=== PATIENT | female | born 1945 | race Asian ===

== ENCOUNTER 2017-05-20 07:05 | Inpatient (IN) | payer OTHER ==
[~2017-05-20] VITALS: Ht 152.4 cm; Wt 59.4 kg
[2017-05-20] MEDS: IV NORMAL SALINE 1000ML BAG 1,000 ML IV SCH ×2 (03:00→12:07)
[2017-05-20] MEDS ORDERED: ACETAMINOPHEN 500 MG TABLET PO ONE (07:30)
[2017-05-20] MEDS ORDERED: IPRATRPIUM/ALBUTEROL 0.5/2.5MG 3 ML NEBU. NEB ONE (07:30)
[2017-05-20] MEDS ORDERED: IV NORMAL SALINE 1000ML BAG 1,000 ML IV ONE (07:30)
--- NOTE | 2017-05-20 07:31 | EKG ---
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
--- NOTE | 2017-05-20 07:31 | PHYS DOC ---
Past Medical History Past Medical History: Diabetes-Type II, Hypertension Adult General Chief Complaint Chief Complaint: cough, fever HPI HPI Patient is a 71 year old female who presents with cough, sob, chest pain, fevers. Pt reports 2-3 days of symptoms, denies headache, dysuria, abdominal pain, no nausea or vomiting. Pt has not taken her temperature at home. She did receive a flu shot this year. PCP is Dr. Marks. Review of Systems Review of Systems Constitutional: Denies fever or chills [] Eyes: Denies change in visual acuity, redness, or eye pain [] HENT: Denies nasal congestion or sore throat [] Respiratory: Denies cough or shortness of breath [] Cardiovascular: No additional information not addressed in HPI [] GI: Denies abdominal pain, nausea, vomiting, bloody stools or diarrhea [] : Denies dysuria or hematuria [] Musculoskeletal: Denies back pain or joint pain [] Integument: Denies rash or skin lesions [] Neurologic: Denies headache, focal weakness or sensory changes [] Endocrine: Denies polyuria or polydipsia [] All other systems were reviewed and found to be within normal limits, except as documented in this note. Current Medications Current Medications Current Medications Medications (Trade) Dose Ordered Sig/Eliseo Start Time Stop Time Status Last Admin Dose Admin Acetaminophen (Tylenol) 1,000 mg 1X ONCE 05/20/17 07:30 05/20/17 07:33 DC 05/20/17 07:56 1,000 MG Albuterol/ Ipratropium (Duoneb) 3 ml 1X ONCE 05/20/17 07:30 05/20/17 07:33 DC 05/20/17 07:42 3 ML Ondansetron HCl (Zofran) 4 mg PRN Q8HRS PRN 05/20/17 08:45 05/21/17 08:44 Piperacillin Sod/ Tazobactam Sod (Zosyn Per Pharmacy) 1 each PRN DAILY PRN 05/20/17 08:30 Piperacillin Sod/ Tazobactam Sod (Zosyn) 3.375 gm 1X ONCE 05/20/17 08:45 05/20/17 08:46 DC 05/20/17 09:03 3.375 GM Sodium Chloride 1,000 ml @ 1,000 mls/hr 1X ONCE 05/20/17 07:30 05/20/17 08:30 DC 05/20/17 07:57 1,000 MLS/HR Vancomycin HCl (Vanco Per Pharmacy) 1 each PRN DAILY PRN 05/20/17 08:30 05/20/17 09:35 1 EACH Vancomycin HCl 1.5 gm/Dextrose/ Sodium Chloride 500 ml @ 250 mls/hr 1X ONCE 05/20/17 08:45 05/20/17 10:44 05/20/17 09:10 250 MLS/HR Allergies Allergies Allergies Coded Allergies Type Severity Reaction Last Updated Verified No Known Drug Allergies 05/20/17 No Physical Exam Physical Exam Constitutional: Well developed, well nourished, ill appearing, non-toxic appearance. [] HENT: Normocephalic, atraumatic, bilateral external ears normal, oropharynx moist, no oral exudates, nose normal. [] Eyes: PERRLA, EOMI, conjunctiva normal, no discharge. [] Neck: Normal range of motion, no tenderness, supple, no stridor. [] Cardiovascular:Heart rate regular with regular rhythm, no murmur [] Lungs & Thorax: Bilateral breath sounds , coarse, faint exp wheeze Abdomen: Bowel sounds normal, soft, no tenderness, no masses, no pulsatile masses. [] Skin: hot, dry, no erythema, no rash. [] Back: No tenderness, no CVA tenderness. [] Extremities: No tenderness, no cyanosis, no clubbing, ROM intact, no edema. [] Neurologic: Alert and oriented X 3, normal motor function, normal sensory function, no focal deficits noted. [] Current Patient Data Vital Signs Vital Signs Date Time Temp Pulse Resp B/P (MAP) Pulse Ox O2 Delivery O2 Flow Rate FiO2 05/20/17 07:45 95 Nasal Cannula 2.0 05/20/17 07:20 100.1 105 27 161/73 (102) 100.1 Lab Values Laboratory Tests Test 05/20/17 07:25 05/20/17 07:45 O2 Saturation 95 % (92-99) Arterial Blood pH 7.32 (7.35-7.45) L Arterial Blood pCO2 at Patient Temp 52 mmHg (35-46) H Arterial Blood pO2 at Patient Temp 77 mmHg (65-108) Arterial Blood HCO3 26 mmol/L (21-28) Arterial Blood Base Excess -1 mmol/L (-3-3) FiO2 28 Lactic Acid Level 0.7 mmol/L (0.4-2.0) White Blood Count 13.5 x10^3/uL (4.0-11.0) H Red Blood Count 4.73 x10^6/uL (3.50-5.40) Hemoglobin 13.4 g/dL (12.0-15.5) Hematocrit 42.9 % (36.0-47.0) Mean Corpuscular Volume 91 fL (79-100) Mean Corpuscular Hemoglobin 28 pg (25-35) Mean Corpuscular Hemoglobin Concent 31 g/dL (31-37) Red Cell Distribution Width 13.2 % (11.5-14.5) Platelet Count 169 x10^3/uL (140-400) Neutrophils (%) (Auto) 82 % (31-73) H Lymphocytes (%) (Auto) 8 % (24-48) L Monocytes (%) (Auto) 9 % (0-9) Eosinophils (%) (Auto) 0 % (0-3) Basophils (%) (Auto) 1 % (0-3) Neutrophils # (Auto) 11.1 x10^3uL (1.8-7.7) H Lymphocytes # (Auto) 1.0 x10^3/uL (1.0-4.8) Monocytes # (Auto) 1.3 x10^3/uL (0.0-1.1) H Eosinophils # (Auto) 0.0 x10^3/uL (0.0-0.7) Basophils # (Auto) 0.1 x10^3/uL (0.0-0.2) Prothrombin Time 13.3 SEC (11.7-14.0) Prothrombin Time INR 1.1 (0.8-1.1) Sodium Level 140 mmol/L (136-145) Potassium Level 4.1 mmol/L (3.5-5.1) Chloride Level 103 mmol/L (98-107) Carbon Dioxide Level 27 mmol/L (21-32) Anion Gap 10 (6-14) Blood Urea Nitrogen 39 mg/dL (7-20) H Creatinine 1.9 mg/dL (0.6-1.0) H Estimated GFR (Cockcroft-Gault) 25.9 BUN/Creatinine Ratio 21 (6-20) H Glucose Level 158 mg/dL (70-99) H Calcium Level 9.0 mg/dL (8.5-10.1) Magnesium Level 1.8 mg/dL (1.8-2.4) Total Bilirubin 0.5 mg/dL (0.2-1.0) Aspartate Amino Transferase (AST) 24 U/L (15-37) Alanine Aminotransferase (ALT) 23 U/L (14-59) Alkaline Phosphatase 73 U/L (46-116) Total Protein 7.2 g/dL (6.4-8.2) Albumin 3.1 g/dL (3.4-5.0) L Albumin/Globulin Ratio 0.8 (1.0-1.7) L Influenza Type A Antigen Negative (NEGATIVE) Influenza Type B Antigen Negative (NEGATIVE) Laboratory Tests 05/20/17 07:45 Laboratory Tests 05/20/17 07:45 EKG EKG 0726: 94 bpm, sinus, normal axis, normal intervals, no ST elevation or depression, nonischemic T waves, interpreted by me[] Radiology/Procedures Radiology/Procedures CXR Portable chest, 05/20/2017: History: Cough, chest pain The heart is mildly enlarged. There is calcific plaquing of the aorta. The pulmonary vascularity is normal. No pulmonary infiltrates are seen. There is no evidence of pleural fluid. Moderate spurring is present in the spine. IMPRESSION: 1. Mild cardiomegaly and aortic atherosclerosis. 2. No acute abnormality is detected. [] Course & Med Decision Making Course & Med Decision Making Pertinent Labs and Imaging studies reviewed. (See chart for details) 1 L NS bolus, po tylenol initiated, septic workup initiated, blood cultures/UA ordered, duoneb. NC O2 initiated due to hypoxia. Pt's sats improved to 98% CXR negative for pneumonia, however clinically she appears to have pneumonia due to resp failure, fever, cough. Pt given IV vanc, zosyn, discussed with Dr. Flores, he accepted, consults placed for pulmonary and ID. Dragon Disclaimer Dragon Disclaimer This electronic medical record was generated, in whole or in part, using a voice recognition dictation system. Departure Departure Impression: Primary Impression: Acute respiratory failure Additional Impression: Sepsis Disposition: 09 ADMITTED INPATIENT Admitting Physician: Bhavana Flores Condition: GUARDED Referrals: PAVITHRA MARKS (PCP) Problem Qualifiers MIKE PARTIDA MD May 20, 2017 07:31
--- NOTE | 2017-05-20 07:46 | RAD ---
Portable chest, 05/20/2017: History: Cough, chest pain The heart is mildly enlarged. There is calcific plaquing of the aorta. The pulmonary vascularity is normal. No pulmonary infiltrates are seen. There is no evidence of pleural fluid. Moderate spurring is present in the spine. IMPRESSION: 1. Mild cardiomegaly and aortic atherosclerosis. 2. No acute abnormality is detected.
[2017-05-20 08:09] LABS: INR 1.1 (0.8-1.1); PROTHROMBIN TIME PATIENT 13.3 SEC (11.7-14.0)
[2017-05-20 08:13] LABS: CREATININE 1.9 mg/dL (0.6-1.0); GFR 25.9; POTASSIUM 4.1 mmol/L (3.5-5.1)
[2017-05-20 08:17] LABS: ALBUMIN 3.1 g/dL (3.4-5.0); ALBUMIN/GLOBULIN RATIO 0.8 (1.0-1.7); MAGNESIUM 1.8 mg/dL (1.8-2.4); TOTAL BILIRUBIN 0.5 mg/dL (0.2-1.0); TOTAL PROTEIN 7.2 g/dL (6.4-8.2)
[2017-05-20 08:21] LABS: BASO # 0.1 x10^3/uL (0.0-0.2); BASO % 1 % (0-3); EOS % 0 % (0-3); HEMATOCRIT 42.9 % (36.0-47.0); HEMOGLOBIN 13.4 g/dL (12.0-15.5); LYMPH % 8 % (24-48); MEAN CORPUSCULAR HEMOGLOBIN 28 pg (25-35); MEAN CORPUSCULAR HGB CONC 31 g/dL (31-37); MEAN CORPUSCULAR VOLUME 91 fL (79-100); MONO % 9 % (0-9); NEUT % 82 % (31-73); PLATELET COUNT 169 x10^3/uL (140-400); RED BLOOD COUNT 4.73 x10^6/uL (3.50-5.40); RED CELL DISTRIBUTION WIDTH 13.2 % (11.5-14.5); WHITE BLOOD COUNT 13.5 x10^3/uL (4.0-11.0)
[2017-05-20] MEDS ORDERED: PIP/TAZO PER PHARMACY MC PRN (08:30)
[2017-05-20] MEDS ORDERED: VANCOMYCIN PER PHARMACY MC PRN (08:30)
[2017-05-20] MEDS ORDERED: ONDANSETRON PF 4 MG/2 ML VIAL. IV PRN (08:45)
[2017-05-20] MEDS ORDERED: VANCOMYCIN 1.5 GM in IV DEXTROSE 5 %-0.45 % NACL 500 ML IV ONE (08:45)
[2017-05-20] MEDS ORDERED: PIPERACILLIN/TAZO IV Push 3.375 GM VIAL. IVP ONE (08:45)
[2017-05-20 08:52] LABS: HCO3 ABG 26 mmol/L (21-28); PCO2 ABG 52 mmHg (35-46); PH ABG 7.32 (7.35-7.45); PO2 ABG 77 mmHg (65-108); SAT O2 ABG 95 % (92-99)
[2017-05-20 08:53] LABS: FIO2 ABG 28
[2017-05-20 08:54] LABS: OBC FLU VALID
--- NOTE | 2017-05-20 10:26 | PDOC ---
Provider Note Provider Note Pt seen.H&P to be dictated. SUKUMAR RICO MD May 20, 2017 10:26
[2017-05-20] MEDS ORDERED: AZITHRMYCN 500MG IVPB FOR OMNI 250 ML IV ONE (10:30)
--- NOTE | 2017-05-20 10:33 | PDOC ---
Infectious Disease Note ROS ROS Vital Sign Vital Signs Vital Signs Date Time Temp Pulse Resp B/P (MAP) Pulse Ox O2 Delivery O2 Flow Rate FiO2 05/20/17 09:45 88 19 108/54 (72) 98 Nasal Cannula 2.0 05/20/17 07:20 100.1 100.1 Labs Lab Laboratory Tests Test 05/20/17 07:25 05/20/17 07:45 05/20/17 10:18 O2 Saturation 95 % (92-99) Arterial Blood pH 7.32 (7.35-7.45) Arterial Blood pCO2 at Patient Temp 52 mmHg (35-46) Arterial Blood pO2 at Patient Temp 77 mmHg (65-108) Arterial Blood HCO3 26 mmol/L (21-28) Arterial Blood Base Excess -1 mmol/L (-3-3) FiO2 28 Lactic Acid Level 0.7 mmol/L (0.4-2.0) White Blood Count 13.5 x10^3/uL (4.0-11.0) Red Blood Count 4.73 x10^6/uL (3.50-5.40) Hemoglobin 13.4 g/dL (12.0-15.5) Hematocrit 42.9 % (36.0-47.0) Mean Corpuscular Volume 91 fL (79-100) Mean Corpuscular Hemoglobin 28 pg (25-35) Mean Corpuscular Hemoglobin Concent 31 g/dL (31-37) Red Cell Distribution Width 13.2 % (11.5-14.5) Platelet Count 169 x10^3/uL (140-400) Neutrophils (%) (Auto) 82 % (31-73) Lymphocytes (%) (Auto) 8 % (24-48) Monocytes (%) (Auto) 9 % (0-9) Eosinophils (%) (Auto) 0 % (0-3) Basophils (%) (Auto) 1 % (0-3) Neutrophils # (Auto) 11.1 x10^3uL (1.8-7.7) Lymphocytes # (Auto) 1.0 x10^3/uL (1.0-4.8) Monocytes # (Auto) 1.3 x10^3/uL (0.0-1.1) Eosinophils # (Auto) 0.0 x10^3/uL (0.0-0.7) Basophils # (Auto) 0.1 x10^3/uL (0.0-0.2) Prothrombin Time 13.3 SEC (11.7-14.0) Prothromb Time International Ratio 1.1 (0.8-1.1) Sodium Level 140 mmol/L (136-145) Potassium Level 4.1 mmol/L (3.5-5.1) Chloride Level 103 mmol/L (98-107) Carbon Dioxide Level 27 mmol/L (21-32) Anion Gap 10 (6-14) Blood Urea Nitrogen 39 mg/dL (7-20) Creatinine 1.9 mg/dL (0.6-1.0) Estimated GFR (Cockcroft-Gault) 25.9 BUN/Creatinine Ratio 21 (6-20) Glucose Level 158 mg/dL (70-99) Calcium Level 9.0 mg/dL (8.5-10.1) Magnesium Level 1.8 mg/dL (1.8-2.4) Total Bilirubin 0.5 mg/dL (0.2-1.0) Aspartate Amino Transf (AST/SGOT) 24 U/L (15-37) Alanine Aminotransferase (ALT/SGPT) 23 U/L (14-59) Alkaline Phosphatase 73 U/L (46-116) Total Protein 7.2 g/dL (6.4-8.2) Albumin 3.1 g/dL (3.4-5.0) Albumin/Globulin Ratio 0.8 (1.0-1.7) Influenza Type A Antigen Negative (NEGATIVE) Influenza Type B Antigen Negative (NEGATIVE) Glucose (Fingerstick) 185 mg/dL (70-99) Objective Assessment Fever Leukocytosis ? Developing CAP vs bronchitis KALIN DM Plan Plan of Care Agree with Vanc/Zosyn Add Azithromycin Given resp status check Mycoplasma/Strep pneuomo/Legionella/Sputum F/u Labs/cults Thank you D/w family # [id number] ZAID DANIELLE MD May 20, 2017 10:33
[2017-05-20 11:00] VITALS: BP 105/41
[2017-05-20] MEDS ORDERED: AZITHROMYCIN 500 MG in IV NORMAL SALINE 250ML 250 ML IV ONE (11:00)
[2017-05-20] MEDS ORDERED: DEXTROSE 50% 25 GM / 50ML DISP.SYRIN. IV PRN (11:00)
[2017-05-20] MEDS ORDERED: ASPI-482 PO (11:05)
[2017-05-20] MEDS ORDERED: METO-239 PO (11:06)
[2017-05-20] MEDS ORDERED: CRESTOR5 MG PO (11:07)
[2017-05-20] MEDS ORDERED: LOSA50TA6 PO (11:07)
[2017-05-20] MEDS ORDERED: CALC1TAB67 PO (11:08)
[2017-05-20] MEDS ORDERED: INSU100I27 SQ (11:11)
[2017-05-20] MEDS: IPRATRPIUM/ALBUTEROL 0.5/2.5MG 3 ML NEBU. NEB SCH ×3 (11:26→20:17)
[2017-05-20 12:13] LABS: NEGATIVE OBC MYCO NEG; POSITIVE OBC MYCO POS
[2017-05-20] MEDS: INSULIN ASPART 300 UNITS/3 ML INSULN.PEN SQ SCH ×2 (12:24→17:00)
[2017-05-20 12:43] LABS: BILIRUBIN,URINE NEGATIVE (NEG); GLUCOSE,URINE NEGATIVE (NEG); NITRITE,URINE NEGATIVE (NEG); PH,URINE 5.5; PROTEIN,URINE 100 mg/dL (NEG-TRACE); UROBILINOGEN,URINE 0.2 mg/dL (0.2 mg/dL)
[2017-05-20 12:52] LABS: BACTERIA,URINE FEW /HPF (0-FEW); SQUAMOUS EPITHELIAL CELL,UR FEW /LPF; WBC,URINE OCC /HPF (0-4)
[2017-05-20] MEDS: METOPROLOL SUCC 24HR ER 25 MG TAB.ER.24H. PO SCH ×2 (13:59→21:38)
[2017-05-20] MEDS: ASPIRIN ENTERIC COATED 81 MG TABLET.DR. PO SCH (13:59)
[2017-05-20 15:00] VITALS: BP 112/46
--- NOTE | 2017-05-20 16:44 | CONS ---
DATE OF CONSULTATION: 05/20/2017 ROOM: 572. REQUESTING PHYSICIAN: Dr. Flores. REASON FOR CONSULTATION: Acute respiratory failure and sepsis. HISTORY OF PRESENT ILLNESS: The patient is a 71-year-old female who has gotten a flu shot this year, but a few days ago began to have congestion with cough. She has had sinus congestion, sore throat. She has had pain in the anterior chest when she coughs with some minimal sputum production. No blood. She has not been on any antimicrobials prior to her admission. She had a subjective fever and presented to [facility] on 05/20. She had a white count of 13.5 with 82% segs. Creatinine was 1.9. Influenza screen was negative. She underwent a chest x-ray that had some mild cardiomegaly, but no acute abnormality. She was subsequently placed on vancomycin as well as Zosyn and admitted to the hospital. Currently, she is lying, she is fairly comfortable. She is on oxygen. She has had no nausea, vomiting or diarrhea. No constipation. No dysuria, frequency or urgency. No falls or trauma and no rashes. PAST MEDICAL HISTORY: Positive for previous urinary tract infections, type 2 diabetes as well as hypertension, has cataracts and she is status post cataract surgery. REVIEW OF SYSTEMS: Negative except for what is mentioned above. ALLERGIES: No known drug allergies. SOCIAL HISTORY: No tobacco or alcohol. Lives with family. No pets. FAMILY HISTORY: No ill contacts. CURRENT MEDICATIONS: Include vancomycin, Zosyn, insulin, lactobacillus. Other meds are available and reviewed in the chart. PHYSICAL EXAMINATION: VITAL SIGNS: Temperature was 100.1, has not been rechecked since it has been taken. Pulse 88, respirations 19, blood pressure 108/54, satting 98% on 2 liters. CONSTITUTIONAL: She is pleasant, cooperative. She looks a little bit tired, but she is in no acute distress. She is on nasal cannula oxygen. HEENT: Pupils are status post cataract surgery. Oral cavity, pharynx is clear. NECK: Supple, no JVD. LUNGS: Had some mild rhonchi, particularly in the right over the left. HEART: S1, S2, with a 1/6 murmur. ABDOMEN: Soft, nontender, nondistended, positive bowel sounds. EXTREMITIES: No clubbing, cyanosis or gross edema. SKIN: Warm to touch without signs of generalized rash. NEUROLOGIC: She is nonfocal, moves all extremities. PSYCHIATRIC: Affect is appropriate. LABORATORY DATA: White count 13.5, hemoglobin 13.4, platelets 169, neutrophils 82, lymphs are 8. Creatinine of 1.9, glucose 158. She had normal liver function study tests. Influenza screen was negative. Radiology reviewed in history of present illness. IMPRESSION: 1. Fever. 2. Leukocytosis. 3. Questionable developing community-acquired pneumonia versus bronchitis. 4. Acute kidney injury. 5. Diabetes. RECOMMENDATIONS: Agree with the vancomycin and Zosyn. We will add azithromycin for atypical coverage. We will check mycoplasma, strep legionella antigens and sputum culture. Follow up on labs and cultures. This was discussed with her family. Thank you for allowing me to see and participate in this patient's care. Should you have any further concerns or questions, please do not hesitate to contact me. ZAID DANIELLE MD DR: JAYY/dwayne JOB#: [id number] / [id number]
[2017-05-20] MEDS: ENOXAPARIN 30 MG/0.3 ML SYRINGE. SQ SCH (17:03)
[2017-05-20] MEDS ORDERED: PNEUMOCOCCAL VAX SCREEN BY RX. MC PRN (17:45)
[2017-05-20] MEDS ORDERED: PNEUMOC CONJ VACC 23-VALENT 0.5 ML VIAL. VAX IM ONE (18:00)
[2017-05-20] MEDS: PIPERACILLIN/TAZO IV Push 2.25 GM VIAL. IVP SCH (18:16)
[2017-05-20 19:00] VITALS: BP 104/57
--- NOTE | 2017-05-20 19:21 | PDOC ---
PULMONARY PROGRESS NOTES Vitals Vital Signs Date Time Temp Pulse Resp B/P (MAP) Pulse Ox O2 Delivery O2 Flow Rate FiO2 05/20/17 15:10 Nasal Cannula 2.0 05/20/17 15:00 98.2 83 18 112/46 (68) 95 98.2 Labs Laboratory Tests Test 05/20/17 07:25 05/20/17 07:45 05/20/17 10:18 05/20/17 12:20 O2 Saturation 95 % (92-99) Arterial Blood pH 7.32 (7.35-7.45) Arterial Blood pCO2 at Patient Temp 52 mmHg (35-46) Arterial Blood pO2 at Patient Temp 77 mmHg (65-108) Arterial Blood HCO3 26 mmol/L (21-28) Arterial Blood Base Excess -1 mmol/L (-3-3) FiO2 28 Lactic Acid Level 0.7 mmol/L (0.4-2.0) White Blood Count 13.5 x10^3/uL (4.0-11.0) Red Blood Count 4.73 x10^6/uL (3.50-5.40) Hemoglobin 13.4 g/dL (12.0-15.5) Hematocrit 42.9 % (36.0-47.0) Mean Corpuscular Volume 91 fL (79-100) Mean Corpuscular Hemoglobin 28 pg (25-35) Mean Corpuscular Hemoglobin Concent 31 g/dL (31-37) Red Cell Distribution Width 13.2 % (11.5-14.5) Platelet Count 169 x10^3/uL (140-400) Neutrophils (%) (Auto) 82 % (31-73) Lymphocytes (%) (Auto) 8 % (24-48) Monocytes (%) (Auto) 9 % (0-9) Eosinophils (%) (Auto) 0 % (0-3) Basophils (%) (Auto) 1 % (0-3) Neutrophils # (Auto) 11.1 x10^3uL (1.8-7.7) Lymphocytes # (Auto) 1.0 x10^3/uL (1.0-4.8) Monocytes # (Auto) 1.3 x10^3/uL (0.0-1.1) Eosinophils # (Auto) 0.0 x10^3/uL (0.0-0.7) Basophils # (Auto) 0.1 x10^3/uL (0.0-0.2) Prothrombin Time 13.3 SEC (11.7-14.0) Prothromb Time International Ratio 1.1 (0.8-1.1) Sodium Level 140 mmol/L (136-145) Potassium Level 4.1 mmol/L (3.5-5.1) Chloride Level 103 mmol/L (98-107) Carbon Dioxide Level 27 mmol/L (21-32) Anion Gap 10 (6-14) Blood Urea Nitrogen 39 mg/dL (7-20) Creatinine 1.9 mg/dL (0.6-1.0) Estimated GFR (Cockcroft-Gault) 25.9 BUN/Creatinine Ratio 21 (6-20) Glucose Level 158 mg/dL (70-99) Calcium Level 9.0 mg/dL (8.5-10.1) Magnesium Level 1.8 mg/dL (1.8-2.4) Total Bilirubin 0.5 mg/dL (0.2-1.0) Aspartate Amino Transf (AST/SGOT) 24 U/L (15-37) Alanine Aminotransferase (ALT/SGPT) 23 U/L (14-59) Alkaline Phosphatase 73 U/L (46-116) Total Protein 7.2 g/dL (6.4-8.2) Albumin 3.1 g/dL (3.4-5.0) Albumin/Globulin Ratio 0.8 (1.0-1.7) Influenza Type A Antigen Negative (NEGATIVE) Influenza Type B Antigen Negative (NEGATIVE) Mycoplasma Serology (LAB) Positive (NEGATIVE) Glucose (Fingerstick) 185 mg/dL (70-99) Urine Collection Type Unknown Urine Color Yellow Urine Clarity Clear Urine pH 5.5 Urine Specific [place] 1.015 Urine Protein 100 mg/dL (NEG-TRACE) Urine Glucose (UA) Negative mg/dL (NEG) Urine Ketones (Stick) Negative mg/dL (NEG) Urine Blood Trace (NEG) Urine Nitrite Negative (NEG) Urine Bilirubin Negative (NEG) Urine Urobilinogen Dipstick 0.2 mg/dL (0.2 mg/dL) Urine Leukocyte Esterase Negative (NEG) Urine RBC 3-5 /HPF (0-2) Urine WBC Occ /HPF (0-4) Urine Squamous Epithelial Cells Few /LPF Urine Bacteria Few /HPF (0-FEW) Test 05/20/17 17:02 Glucose (Fingerstick) 149 mg/dL (70-99) Laboratory Tests Test 05/20/17 07:25 05/20/17 07:45 05/20/17 10:18 05/20/17 12:20 O2 Saturation 95 % (92-99) Arterial Blood pH 7.32 (7.35-7.45) Arterial Blood pCO2 at Patient Temp 52 mmHg (35-46) Arterial Blood pO2 at Patient Temp 77 mmHg (65-108) Arterial Blood HCO3 26 mmol/L (21-28) Arterial Blood Base Excess -1 mmol/L (-3-3) FiO2 28 Lactic Acid Level 0.7 mmol/L (0.4-2.0) White Blood Count 13.5 x10^3/uL (4.0-11.0) Red Blood Count 4.73 x10^6/uL (3.50-5.40) Hemoglobin 13.4 g/dL (12.0-15.5) Hematocrit 42.9 % (36.0-47.0) Mean Corpuscular Volume 91 fL (79-100) Mean Corpuscular Hemoglobin 28 pg (25-35) Mean Corpuscular Hemoglobin Concent 31 g/dL (31-37) Red Cell Distribution Width 13.2 % (11.5-14.5) Platelet Count 169 x10^3/uL (140-400) Neutrophils (%) (Auto) 82 % (31-73) Lymphocytes (%) (Auto) 8 % (24-48) Monocytes (%) (Auto) 9 % (0-9) Eosinophils (%) (Auto) 0 % (0-3) Basophils (%) (Auto) 1 % (0-3) Neutrophils # (Auto) 11.1 x10^3uL (1.8-7.7) Lymphocytes # (Auto) 1.0 x10^3/uL (1.0-4.8) Monocytes # (Auto) 1.3 x10^3/uL (0.0-1.1) Eosinophils # (Auto) 0.0 x10^3/uL (0.0-0.7) Basophils # (Auto) 0.1 x10^3/uL (0.0-0.2) Prothrombin Time 13.3 SEC (11.7-14.0) Prothromb Time International Ratio 1.1 (0.8-1.1) Sodium Level 140 mmol/L (136-145) Potassium Level 4.1 mmol/L (3.5-5.1) Chloride Level 103 mmol/L (98-107) Carbon Dioxide Level 27 mmol/L (21-32) Anion Gap 10 (6-14) Blood Urea Nitrogen 39 mg/dL (7-20) Creatinine 1.9 mg/dL (0.6-1.0) Estimated GFR (Cockcroft-Gault) 25.9 BUN/Creatinine Ratio 21 (6-20) Glucose Level 158 mg/dL (70-99) Calcium Level 9.0 mg/dL (8.5-10.1) Magnesium Level 1.8 mg/dL (1.8-2.4) Total Bilirubin 0.5 mg/dL (0.2-1.0) Aspartate Amino Transf (AST/SGOT) 24 U/L (15-37) Alanine Aminotransferase (ALT/SGPT) 23 U/L (14-59) Alkaline Phosphatase 73 U/L (46-116) Total Protein 7.2 g/dL (6.4-8.2) Albumin 3.1 g/dL (3.4-5.0) Albumin/Globulin Ratio 0.8 (1.0-1.7) Influenza Type A Antigen Negative (NEGATIVE) Influenza Type B Antigen Negative (NEGATIVE) Mycoplasma Serology (LAB) Positive (NEGATIVE) Glucose (Fingerstick) 185 mg/dL (70-99) Urine Collection Type Unknown Urine Color Yellow Urine Clarity Clear Urine pH 5.5 Urine Specific [place] 1.015 Urine Protein 100 mg/dL (NEG-TRACE) Urine Glucose (UA) Negative mg/dL (NEG) Urine Ketones (Stick) Negative mg/dL (NEG) Urine Blood Trace (NEG) Urine Nitrite Negative (NEG) Urine Bilirubin Negative (NEG) Urine Urobilinogen Dipstick 0.2 mg/dL (0.2 mg/dL) Urine Leukocyte Esterase Negative (NEG) Urine RBC 3-5 /HPF (0-2) Urine WBC Occ /HPF (0-4) Urine Squamous Epithelial Cells Few /LPF Urine Bacteria Few /HPF (0-FEW) Test 05/20/17 17:02 Glucose (Fingerstick) 149 mg/dL (70-99) Medications Active Scripts Medications Dose Route/Sig Max Daily Dose Days Date Category Levemir Flextouch (Insulin Detemir) 100 Unit/1 Ml Insuln.pen 28 Unit SQ HS 05/20/17 Reported Calcitrate + Vit D Caplet (Calcium Citrate/Vitamin D3) 1 Each Tablet 1 Each PO 05/20/17 Reported Crestor (Rosuvastatin Calcium) 5 Mg Tablet 1 Tab PO DAILY 05/20/17 Reported Losartan Potassium 50 Mg Tablet 50 Mg PO DAILY 05/20/17 Reported Metoprolol Succinate ( Xl ) (Metoprolol Succinate) 25 Mg Tab.er.24h 1 Tab PO BID 05/20/17 Reported Aspir 81 (Aspirin) 81 Mg Tablet.dr 1 Tab PO DAILY 05/20/17 Reported Impression . NOTE DICTATED PNEUMONIA AGREE WITH CURRENT RX THANKS JUSTICE MALAGON MD May 20, 2017 19:21
[2017-05-20] MEDS: LACTOBACILLUS RHAMNOSUS GG 1 CAPSULE. PO SCH (21:38)
[2017-05-20] MEDS: ATORVASTATIN CALCIUM 20 MG TABLET PO SCH (21:39)
[2017-05-20] MEDS: INSULIN DETEMIR 300 UNITS/3 ML INSULN.PEN. SQ SCH (21:44)
[2017-05-20 23:00] VITALS: BP 114/57
[2017-05-21] MEDS: PIPERACILLIN/TAZO IV Push 2.25 GM VIAL. IVP SCH ×2 (00:30→06:00)
[2017-05-21 01:14] LABS: SPECIMEN SOURCE Urine (.)
--- NOTE | 2017-05-21 02:06 | CONS ---
DATE OF CONSULTATION: 05/20/2017 ATTENDING PHYSICIAN: Bhavana Flores M.D. REASON FOR CONSULTATION: The patient seen in pulmonary consultation at the request of Dr. Flores for pneumonia. HISTORY OF PRESENT ILLNESS: The patient is a 71-year old who has never smoked, presented with increasing shortness of breath, cough productive of discolored sputum, some fevers at home 2-3 day symptoms. Denied headaches, diplopia or blurred vision. She was admitted. I was asked to see her in consultation for possible pneumonia. X-ray at this time does not show any infiltrates. She has been seen by Infectious Disease Service and is currently on vancomycin, Zosyn and Zithromax. The patient feels better. At the time of my evaluation, she was not more short of breath. She normally does not wear oxygen. She has never smoked. She denies hemoptysis. PAST MEDICAL HISTORY: UTI, type 2 diabetes and hypertension. PAST SURGICAL HISTORY: Status post cataract extraction. REVIEW OF SYSTEMS: As indicated above, otherwise, a 10-point system was reviewed and negative. CONSTITUTIONAL: No fevers at home. EYES: No changes in visual acuity. HEENT: No nasal congestion or sore throat. RESPIRATORY: As indicated above. CARDIOVASCULAR: No chest pain. No pressure. GASTROINTESTINAL: No nausea, vomiting or diarrhea. GENITOURINARY: No dysuria or frequency. MUSCULOSKELETAL: No localized muscle aches or joint pain. SKIN: No new skin rashes. NEUROLOGICAL: No headaches, diplopia or blurred vision. SOCIAL HISTORY: She has never smoked. No sick contacts at home. FAMILY HISTORY: Noncontributory. VACCINATION HISTORY: She is up to date on vaccination. PHYSICAL EXAMINATION: GENERAL: The patient was in no respiratory distress. VITAL SIGNS: Stable. O2 saturation greater than 92%. HEENT: Eyes, the sclerae were nonicteric. NECK: Jugular venous distention was not elevated. No lymphadenopathy. CHEST: Full expansion. LUNGS: Adequate airway flow with no wheezes. CARDIOVASCULAR: Regular rate and rhythm with S1 and S2. No S3. ABDOMEN: Soft, nontender and nondistended. EXTREMITIES: No clubbing, cyanosis or edema. NEUROLOGICAL: The patient was awake, alert and following commands. A detailed neuro exam was not performed. LABORATORY DATA: Reviewed. White count was elevated. Hemoglobin and hematocrit were noted. Mycoplasma serology was positive. Electrolytes were noted. BUN was elevated. Creatinine was elevated. Arterial blood gas: pH of 7.32, PaCO2 of 57 and pO2 of 77 on 28% FIO2. IMPRESSION: 1. Acute respiratory failure, present upon admission. 2. Mycoplasma pneumonia. 3. Sepsis. 4. Leukocytosis. 5. Fever. 6. Acute kidney injury. 7. Diabetes. PLAN: 1. We will continue current medical management. If the patient continues to improve, we will deescalate the antibiotics in the a.m. 2. Continue oxygen supplementation. 3. Follow clinical course. 4. DVT and GI prophylaxis. Dr. Flores, I do appreciate the privilege in sharing in the patient's care. JUSTICE MALAGON MD DR: DELVIS/dwayne JOB#: [id number] / [id number]
[2017-05-21 03:00] VITALS: BP 122/62
[2017-05-21 05:20] LABS: BASO % 0 % (0-3); EOS % 1 % (0-3); HEMATOCRIT 39.2 % (36.0-47.0); HEMOGLOBIN 12.1 g/dL (12.0-15.5); LYMPH # 1.5 x10^3/uL (1.0-4.8); LYMPH % 20 % (24-48); MEAN CORPUSCULAR HEMOGLOBIN 29 pg (25-35); MEAN CORPUSCULAR HGB CONC 31 g/dL (31-37); MEAN CORPUSCULAR VOLUME 93 fL (79-100); MONO % 11 % (0-9); NEUT % 68 % (31-73); PLATELET COUNT 148 x10^3/uL (140-400); RED BLOOD COUNT 4.22 x10^6/uL (3.50-5.40); RED CELL DISTRIBUTION WIDTH 13.4 % (11.5-14.5); WHITE BLOOD COUNT 7.2 x10^3/uL (4.0-11.0)
[2017-05-21 05:38] LABS: CALCIUM 8.2 mg/dL (8.5-10.1); CREATININE 2.1 mg/dL (0.6-1.0); GFR 23.1
[2017-05-21 07:00] VITALS: BP 134/83
[2017-05-21] MEDS: IPRATRPIUM/ALBUTEROL 0.5/2.5MG 3 ML NEBU. NEB SCH ×4 (07:18→21:01)
[2017-05-21] MEDS: INSULIN ASPART 300 UNITS/3 ML INSULN.PEN SQ SCH ×3 (08:00→16:56)
[2017-05-21] MEDS: LACTOBACILLUS RHAMNOSUS GG 1 CAPSULE. PO SCH ×2 (08:59→20:41)
[2017-05-21] MEDS: METOPROLOL SUCC 24HR ER 25 MG TAB.ER.24H. PO SCH ×2 (09:00→20:51)
[2017-05-21] MEDS ORDERED: VANCOMYCIN 1 GM in IV NORMAL SALINE 250ML 250 ML IV SCH (09:00)
[2017-05-21] MEDS: ASPIRIN ENTERIC COATED 81 MG TABLET.DR. PO SCH (09:00)
--- NOTE | 2017-05-21 09:18 | RAD ---
Examination: Single frontal view chest. History: History of shortness of breath, pneumonia Comparison: 05/20/2017 Findings: Mild cardiomegaly is again identified. Minimal prominent bilateral interstitial lung markings likely chronic interstitial changes grossly similar to prior exam. Minimal left lung base airspace opacity likely atelectasis or infiltrate. Moderate degenerative changes thoracic spine. Impression: Minimal left lung base airspace opacities likely atelectasis or infiltrates.
--- NOTE | 2017-05-21 10:13 | PDOC ---
PROGRESS NOTES Subjective Subjective pt feels better Objective Objective Vital Signs Date Time Temp Pulse Resp B/P (MAP) Pulse Ox O2 Delivery O2 Flow Rate FiO2 05/21/17 09:00 78 134/83 05/21/17 07:19 98 Nasal Cannula 2.0 05/21/17 07:00 97.9 18 97.9 Intake and Output 05/21/17 07:00 Intake Total 1760 ml Output Total 1000 ml Balance 760 ml Intake Oral 760 ml IV Total 1000 ml Output Urine Total 1000 ml # Voids 1 Physical Exam Abdomen: Normal bowel sounds, Soft Heart: Regular rate, Normal S1, Normal S2 Extremities: No clubbing General: Oriented X3 HEENT: Atraumatic Lungs: Normal air movement MUSCULOSKELETAL: No swelling Neck: Supple Neuro: Normal speech Psych/Mental Status: Mental status NL Skin: No breakdown Diagnosis Problem List Problems Medical Problems: (1) Acute respiratory failure Status: Acute (2) Sepsis Status: Acute Assessment Assessment Problems Medical Problems: (1) Acute respiratory failure Status: Acute (2) Sepsis Status: Acute IMPRESSION: 1. Fever. 2. Leukocytosis. 3. community-acquired pneumonia versus bronchitis. 4. Acute on chronic kidney injury. 5. Diabetes IDDM. RECOMMENDATIONS: wbc down 10 mycoplasma urine positive. cxr improving home in 1-2 days d/c vancomycin and Zosyn. We will add azithromycin for atypical coverage. We will check mycoplasma, strep legionella antigens and sputum culture. Follow up on labs and cultures. This was discussed with her family. Problems: Plan Plan of Care Problems Medical Problems: (1) Acute respiratory failure Status: Acute (2) Sepsis Status: Acute Comment Review of Relevant I have reviewed the following items susannah (where applicable) has been applied. Labs Laboratory Tests Test 05/20/17 10:18 05/20/17 12:20 05/20/17 17:02 05/20/17 21:11 Glucose (Fingerstick) 185 mg/dL (70-99) 149 mg/dL (70-99) 214 mg/dL (70-99) Urine Collection Type Unknown Urine Color Yellow Urine Clarity Clear Urine pH 5.5 Urine Specific [place] 1.015 Urine Protein 100 mg/dL (NEG-TRACE) Urine Glucose (UA) Negative mg/dL (NEG) Urine Ketones (Stick) Negative mg/dL (NEG) Urine Blood Trace (NEG) Urine Nitrite Negative (NEG) Urine Bilirubin Negative (NEG) Urine Urobilinogen Dipstick 0.2 mg/dL (0.2 mg/dL) Urine Leukocyte Esterase Negative (NEG) Urine RBC 3-5 /HPF (0-2) Urine WBC Occ /HPF (0-4) Urine Squamous Epithelial Cells Few /LPF Urine Bacteria Few /HPF (0-FEW) Body Fluid Culture (LAB) (.) Urine Legionella Antigen Negative (Negative) Streptococcus pneumoniae Antigen Negative (Negative) Organism Identification (LAB) (.) LUBA Specimen Source Urine (.) Test 05/21/17 03:55 05/21/17 07:27 05/21/17 07:53 White Blood Count 7.2 x10^3/uL (4.0-11.0) Red Blood Count 4.22 x10^6/uL (3.50-5.40) Hemoglobin 12.1 g/dL (12.0-15.5) Hematocrit 39.2 % (36.0-47.0) Mean Corpuscular Volume 93 fL (79-100) Mean Corpuscular Hemoglobin 29 pg (25-35) Mean Corpuscular Hemoglobin Concent 31 g/dL (31-37) Red Cell Distribution Width 13.4 % (11.5-14.5) Platelet Count 148 x10^3/uL (140-400) Neutrophils (%) (Auto) 68 % (31-73) Lymphocytes (%) (Auto) 20 % (24-48) Monocytes (%) (Auto) 11 % (0-9) Eosinophils (%) (Auto) 1 % (0-3) Basophils (%) (Auto) 0 % (0-3) Neutrophils # (Auto) 4.9 x10^3uL (1.8-7.7) Lymphocytes # (Auto) 1.5 x10^3/uL (1.0-4.8) Monocytes # (Auto) 0.8 x10^3/uL (0.0-1.1) Eosinophils # (Auto) 0.1 x10^3/uL (0.0-0.7) Basophils # (Auto) 0.0 x10^3/uL (0.0-0.2) Sodium Level 147 mmol/L (136-145) Potassium Level 4.0 mmol/L (3.5-5.1) Chloride Level 113 mmol/L (98-107) Carbon Dioxide Level 26 mmol/L (21-32) Anion Gap 8 (6-14) Blood Urea Nitrogen 34 mg/dL (7-20) Creatinine 2.1 mg/dL (0.6-1.0) Estimated GFR (Cockcroft-Gault) 23.1 Glucose Level 87 mg/dL (70-99) Calcium Level 8.2 mg/dL (8.5-10.1) Glucose (Fingerstick) 56 mg/dL (70-99) 99 mg/dL (70-99) Microbiology 05/20/17 Blood Culture - Preliminary, Resulted NO GROWTH AFTER 1 DAY 05/20/17 - Final, Resulted 05/20/17 - Final, Resulted 05/20/17 - Final, Resulted 05/20/17 - Final, Resulted 05/20/17 Gram Stain Evaluation - Final, Resulted 05/20/17 Sputum Culture, Resulted Pending 05/20/17 Sputum Result 1, Resulted Pending Medications Current Medications Albuterol/ Ipratropium (Duoneb) 3 ml RTQID NEB Last administered on 05/21/17 07:18; Start 05/20/17 at 12:00 Aspirin (Ecotrin) 81 mg DAILY08 PO Last administered on 05/21/17 09:00; Start 05/20/17 at 13:00 Atorvastatin Calcium (Lipitor) 20 mg QHS PO Last administered on 05/20/17 21: 39; Start 05/20/17 at 21:00 Azithromycin 250 ml @ 250 mls/hr 1X ONCE IV ; Start 05/20/17 at 10:30; Stop 05/20/17 at 11:29; Status UNV Azithromycin 500 mg/Sodium Chloride 250 ml @ 250 mls/hr ONCE ONCE IV Last administered on 05/20/17 12:07; Start 05/20/17 at 11:00; Stop 05/20/17 at 11:59 ; Status DC Dextrose (Dextrose 50%-Water Syringe) 12.5 gm PRN Q15MIN PRN IV SEE COMMENTS; Start 05/20/17 at 11:00 Enoxaparin Sodium (Lovenox 30mg Syringe) 30 mg DAILY16 SQ Last administered on 05/20/17 17:03; Start 05/20/17 at 16:00 Insulin Aspart (NovoLOG) 0-5 UNITS TIDWMEALS SQ Last administered on 05/20/17 12:24; Start 05/20/17 at 12:00 Insulin Detemir (Levemir) 28 units HS SQ Last administered on 05/20/17 21:44; Start 05/20/17 at 21:00 Lactobacillus Rhamnosus (Culturelle) 1 cap BID PO Last administered on 08:59; Start 05/20/17 at 21:00 Metoprolol Succinate (Toprol Xl) 25 mg BID PO Last administered on 05/21/17 09 :00; Start 05/20/17 at 13:30 Piperacillin Sod/ Tazobactam Sod (Zosyn) 2.25 gm Q6HRS IVP Last administered on 05/21/17 06:00; Start 05/20/17 at 18:00 Pneumococcal Polyvalent Vaccine (Do NOT chart on this placeholder) 1 each PRN 1X PRN MC SEE COMMENTS; Start 05/20/17 at 17:45; Status UNV Pneumococcal Polyvalent Vaccine (Pneumovax 23) 0.5 ml ONCE ONCE VAX IM Last administered on 05/21/17 09:09; Start 05/20/17 at 18:00; Stop 05/20/17 at 18:01 ; Status DC Sodium Chloride 1,000 ml @ 75 mls/hr [id number] IV Last administered on 03:00; Start 05/20/17 at 10:30; Stop 05/21/17 at 09:45; Status DC Vancomycin HCl 1 each 1X ONCE MC ; Start 05/22/17 at 08:30; Stop 05/22/17 at 08 :31 Vancomycin HCl 1 gm/Sodium Chloride 250 ml @ 250 mls/hr Q24H IV Last administered on 05/21/17 09:02; Start 05/21/17 at 09:00 Vitals/I & O Vital Sign - Last 24 Hours 05/20/17 05/20/17 05/20/17 05/20/17 11:00 11:29 13:59 14:32 Temp 98.1 98.1 Pulse 82 82 Resp 18 B/P (MAP) 105/41 (62) 105/41 Pulse Ox 94 98 O2 Delivery Room Air Nasal Cannula Nasal Cannula O2 Flow Rate 2.0 2.0 12/705/20/17 05/20/17 05/20/17 15:00 15:10 19:00 20:00 Temp 98.2 99.1 98.2 99.1 Pulse 83 79 Resp 18 20 B/P (MAP) 112/46 (68) 104/57 (73) Pulse Ox 95 95 O2 Delivery Room Air Nasal Cannula Nasal Cannula O2 Flow Rate 2.0 2.0 05/20/17 05/20/17 05/20/17 05/21/17 20:18 21:38 23:00 03:00 Temp 98.3 98.2 98.3 98.2 Pulse 79 70 70 Resp 18 16 B/P (MAP) 104/57 114/57 (76) 122/62 (82) Pulse Ox 96 94 96 O2 Delivery Nasal Cannula O2 Flow Rate 2.0 05/21/17 05/21/17 05/21/17 07:00 07:19 09:00 Temp 97.9 97.9 Pulse 78 78 Resp 18 B/P (MAP) 134/83 (100) 134/83 Pulse Ox 94 98 O2 Delivery Nasal Cannula Nasal Cannula O2 Flow Rate 2.0 2.0 Intake and Output 05/20/17 05/20/17 05/21/17 15:00 23:00 07:00 Intake Total 1240 ml 520 ml Output Total 1000 ml Balance 1240 ml 520 ml -1000 ml SUKUMAR RICO MD May 21, 2017 10:13
--- NOTE | 2017-05-21 10:53 | PDOC ---
Infectious Disease Note Subjective Subjective Feeling better Less cough but still some discomfort Eating some ROS ROS GEN: Denies fevers, chills, sweats HEENT: Denies blurred vision, sore throat CV: Denies chest pain RESP: Denies shortness of air, cough GI: Denies n/v/d NEURO: Denies confusion, dizziness MSK: Denies weakness, joint pain/swelling Vital Sign Vital Signs Vital Signs Date Time Temp Pulse Resp B/P (MAP) Pulse Ox O2 Delivery O2 Flow Rate FiO2 05/21/17 09:00 78 134/83 05/21/17 07:19 98 Nasal Cannula 2.0 05/21/17 07:00 97.9 18 97.9 Physical Exam PHYSICAL EXAM GENERAL: NAD, Alert. looks comfortable but tired HEENT: PERRL, OC/OP -cry NECK: Supple, no JVD, no LN LUNGS: Clear - on 02 HEART: S1S2, no gallop, no murmur ABD: Soft, NT, no organomegaly, no rebound EXT: No edema, no cyanosis COOK NIGHT: Alert, oriented x 3, no focal neurologic deficit SKIN: No rash IV: ok Labs Lab Laboratory Tests Test 05/20/17 12:20 05/20/17 17:02 05/20/17 21:11 05/21/17 03:55 Urine Collection Type Unknown Urine Color Yellow Urine Clarity Clear Urine pH 5.5 Urine Specific [place] 1.015 Urine Protein 100 mg/dL (NEG-TRACE) Urine Glucose (UA) Negative mg/dL (NEG) Urine Ketones (Stick) Negative mg/dL (NEG) Urine Blood Trace (NEG) Urine Nitrite Negative (NEG) Urine Bilirubin Negative (NEG) Urine Urobilinogen Dipstick 0.2 mg/dL (0.2 mg/dL) Urine Leukocyte Esterase Negative (NEG) Urine RBC 3-5 /HPF (0-2) Urine WBC Occ /HPF (0-4) Urine Squamous Epithelial Cells Few /LPF Urine Bacteria Few /HPF (0-FEW) Body Fluid Culture (LAB) (.) Urine Legionella Antigen Negative (Negative) Streptococcus pneumoniae Antigen Negative (Negative) Organism Identification (LAB) (.) LUBA Specimen Source Urine (.) Glucose (Fingerstick) 149 mg/dL (70-99) 214 mg/dL (70-99) White Blood Count 7.2 x10^3/uL (4.0-11.0) Red Blood Count 4.22 x10^6/uL (3.50-5.40) Hemoglobin 12.1 g/dL (12.0-15.5) Hematocrit 39.2 % (36.0-47.0) Mean Corpuscular Volume 93 fL (79-100) Mean Corpuscular Hemoglobin 29 pg (25-35) Mean Corpuscular Hemoglobin Concent 31 g/dL (31-37) Red Cell Distribution Width 13.4 % (11.5-14.5) Platelet Count 148 x10^3/uL (140-400) Neutrophils (%) (Auto) 68 % (31-73) Lymphocytes (%) (Auto) 20 % (24-48) Monocytes (%) (Auto) 11 % (0-9) Eosinophils (%) (Auto) 1 % (0-3) Basophils (%) (Auto) 0 % (0-3) Neutrophils # (Auto) 4.9 x10^3uL (1.8-7.7) Lymphocytes # (Auto) 1.5 x10^3/uL (1.0-4.8) Monocytes # (Auto) 0.8 x10^3/uL (0.0-1.1) Eosinophils # (Auto) 0.1 x10^3/uL (0.0-0.7) Basophils # (Auto) 0.0 x10^3/uL (0.0-0.2) Sodium Level 147 mmol/L (136-145) Potassium Level 4.0 mmol/L (3.5-5.1) Chloride Level 113 mmol/L (98-107) Carbon Dioxide Level 26 mmol/L (21-32) Anion Gap 8 (6-14) Blood Urea Nitrogen 34 mg/dL (7-20) Creatinine 2.1 mg/dL (0.6-1.0) Estimated GFR (Cockcroft-Gault) 23.1 Glucose Level 87 mg/dL (70-99) Calcium Level 8.2 mg/dL (8.5-10.1) Test 05/21/17 07:27 05/21/17 07:53 Glucose (Fingerstick) 56 mg/dL (70-99) 99 mg/dL (70-99) Objective Assessment Fever - better Leukocytosis - better + Mycoplama ? Developing CAP vs bronchitis KALIN - worse DM Plan Plan of Care D/c Vanc/Zosyn Cont Azithromycin F/u Labs/cults D/w family ZAID DANIELLE MD May 21, 2017 10:53
[2017-05-21 11:07] VITALS: BP 127/65
--- NOTE | 2017-05-21 11:10 | HP ---
ADMIT DATE: 05/20/2017 PATIENT LOCATION: [id number] REASON FOR ADMISSION TO THE HOSPITAL: Fever, pneumonia. HISTORY OF PRESENT ILLNESS: The patient is a 71-year-old female, patient of Dr. Gay. The patient has history of diabetes, hypertension, mild renal insufficiency. She was not feeling well for last 2 days, cough, fever, congestion, short of breath, came to the Emergency Room, she was found to be hypoxic, was given 2 liters and x-ray shows infiltrate in the lung, was admitted with diagnosis of possible pneumonia. PAST MEDICAL HISTORY: As mentioned above, history of hypertension, diabetes and mild renal insufficiency. PAST SURGICAL HISTORY: Denies any major surgeries. ALLERGIES: QUESTIONABLE ALLERGY TO [place]. MEDICATIONS: Aspirin 81 mg daily, insulin 20 units of Levemir 25 units, Coreg 25 mg daily, Crestor 5 mg daily and calcium with vitamin D. PERSONAL HISTORY: Denies smoking, alcohol, drug abuse. SOCIAL HISTORY: Lives at home. The patient is up-to-date on flu and pneumonia shots. REVIEW OF SYSTEMS: CARDIAC: No chest pain, only has some cough, fever, chest congestion and some yellow phlegm. Rest of the 14-system was reviewed and negative. PHYSICAL EXAMINATION: GENERAL: The patient was sick yesterday, much better today. VITAL SIGNS: Temperature 101, pulse 105, respirations 27, blood pressure 160/73, 85% on room air, 95% on 2 liters. HEENT: Head is atraumatic. Pupils are equal. Oral cavity: Congestion, posterior pharynx. NECK: Supple. Thyroid not enlarged. JVD not elevated. CHEST: Symmetrical. CARDIOVASCULAR: S1, S2. LUNGS: Few crackles at the right side of the base. ABDOMEN: Soft, bowel sounds present, no mass palpable. EXTERNAL GENITALIA: No Nixon. RECTAL: Deferred. EXTREMITIES: No calf tenderness. There is no edema. NEUROLOGIC: Cranial nerves intact. Power 5/5 in all extremities. LABORATORY DATA: Shows a white count of 13, hemoglobin 13, platelets 169. White count came down to 7. Electrolytes show sodium 140, potassium 4.1, chloride 103, bicarbonate 27, BUN 39, creatinine 1.9, glucose 158. Lactic acid 0.7. LFTs were normal. INR is 1.1. Urine was negative for infection. Influenza A and B were negative. Mycoplasma serology was positive. Urine legionella antigen was negative, strep pneumonia antigen was negative and chest x-ray shows early infiltrate in the right lung. FINAL IMPRESSION: 1. Fever, possible pneumonia. 2. Looks like mycoplasma pneumonia. 3. Diabetes. 4. Hypertension. 5. Mild renal insufficiency, stage 3. PLAN: At this time, was admitted to the hospital, broad-spectrum antibiotic given, vancomycin and Zosyn. ID was consulted, Pulmonary was consulted, given breathing treatments, IV fluids and see how the patient's condition improves in the next 24-48 hours. SUKUMAR RICO MD DR: RANDY/dwayne JOB#: [id number] / [id number] PAVITHRA Boudreaux
[2017-05-21] MEDS: AZITHROMYCIN 250 MG TABLET. PO SCH (12:12)
--- NOTE | 2017-05-21 13:53 | PDOC ---
PULMONARY PROGRESS NOTES Subjective pt feels better less soa Vitals Vital Signs Date Time Temp Pulse Resp B/P (MAP) Pulse Ox O2 Delivery O2 Flow Rate FiO2 05/21/17 11:25 Nasal Cannula 2.0 05/21/17 11:07 97.9 75 18 127/65 (85) 99 97.9 ROS: No Nausea, No Chest Pain, No Abdominal Pain, No Increase Cough Lungs: Crackles Cardiovascular: S1, S2 Abdomen: Soft, Non-tender Neuro Exam: Alert Extremities: No Edema Skin: Warm Labs Laboratory Tests Test 05/20/17 07:25 05/20/17 07:45 05/20/17 10:18 05/20/17 12:20 O2 Saturation 95 % (92-99) Arterial Blood pH 7.32 (7.35-7.45) Arterial Blood pCO2 at Patient Temp 52 mmHg (35-46) Arterial Blood pO2 at Patient Temp 77 mmHg (65-108) Arterial Blood HCO3 26 mmol/L (21-28) Arterial Blood Base Excess -1 mmol/L (-3-3) FiO2 28 Lactic Acid Level 0.7 mmol/L (0.4-2.0) White Blood Count 13.5 x10^3/uL (4.0-11.0) Red Blood Count 4.73 x10^6/uL (3.50-5.40) Hemoglobin 13.4 g/dL (12.0-15.5) Hematocrit 42.9 % (36.0-47.0) Mean Corpuscular Volume 91 fL (79-100) Mean Corpuscular Hemoglobin 28 pg (25-35) Mean Corpuscular Hemoglobin Concent 31 g/dL (31-37) Red Cell Distribution Width 13.2 % (11.5-14.5) Platelet Count 169 x10^3/uL (140-400) Neutrophils (%) (Auto) 82 % (31-73) Lymphocytes (%) (Auto) 8 % (24-48) Monocytes (%) (Auto) 9 % (0-9) Eosinophils (%) (Auto) 0 % (0-3) Basophils (%) (Auto) 1 % (0-3) Neutrophils # (Auto) 11.1 x10^3uL (1.8-7.7) Lymphocytes # (Auto) 1.0 x10^3/uL (1.0-4.8) Monocytes # (Auto) 1.3 x10^3/uL (0.0-1.1) Eosinophils # (Auto) 0.0 x10^3/uL (0.0-0.7) Basophils # (Auto) 0.1 x10^3/uL (0.0-0.2) Prothrombin Time 13.3 SEC (11.7-14.0) Prothromb Time International Ratio 1.1 (0.8-1.1) Sodium Level 140 mmol/L (136-145) Potassium Level 4.1 mmol/L (3.5-5.1) Chloride Level 103 mmol/L (98-107) Carbon Dioxide Level 27 mmol/L (21-32) Anion Gap 10 (6-14) Blood Urea Nitrogen 39 mg/dL (7-20) Creatinine 1.9 mg/dL (0.6-1.0) Estimated GFR (Cockcroft-Gault) 25.9 BUN/Creatinine Ratio 21 (6-20) Glucose Level 158 mg/dL (70-99) Calcium Level 9.0 mg/dL (8.5-10.1) Magnesium Level 1.8 mg/dL (1.8-2.4) Total Bilirubin 0.5 mg/dL (0.2-1.0) Aspartate Amino Transf (AST/SGOT) 24 U/L (15-37) Alanine Aminotransferase (ALT/SGPT) 23 U/L (14-59) Alkaline Phosphatase 73 U/L (46-116) Total Protein 7.2 g/dL (6.4-8.2) Albumin 3.1 g/dL (3.4-5.0) Albumin/Globulin Ratio 0.8 (1.0-1.7) Influenza Type A Antigen Negative (NEGATIVE) Influenza Type B Antigen Negative (NEGATIVE) Mycoplasma Serology (LAB) Positive (NEGATIVE) Glucose (Fingerstick) 185 mg/dL (70-99) Urine Collection Type Unknown Urine Color Yellow Urine Clarity Clear Urine pH 5.5 Urine Specific [place] 1.015 Urine Protein 100 mg/dL (NEG-TRACE) Urine Glucose (UA) Negative mg/dL (NEG) Urine Ketones (Stick) Negative mg/dL (NEG) Urine Blood Trace (NEG) Urine Nitrite Negative (NEG) Urine Bilirubin Negative (NEG) Urine Urobilinogen Dipstick 0.2 mg/dL (0.2 mg/dL) Urine Leukocyte Esterase Negative (NEG) Urine RBC 3-5 /HPF (0-2) Urine WBC Occ /HPF (0-4) Urine Squamous Epithelial Cells Few /LPF Urine Bacteria Few /HPF (0-FEW) Body Fluid Culture (LAB) (.) Urine Legionella Antigen Negative (Negative) Streptococcus pneumoniae Antigen Negative (Negative) Organism Identification (LAB) (.) LUBA Specimen Source Urine (.) Test 05/20/17 17:02 05/20/17 21:11 05/21/17 03:55 05/21/17 07:27 Glucose (Fingerstick) 149 mg/dL (70-99) 214 mg/dL (70-99) 56 mg/dL (70-99) White Blood Count 7.2 x10^3/uL (4.0-11.0) Red Blood Count 4.22 x10^6/uL (3.50-5.40) Hemoglobin 12.1 g/dL (12.0-15.5) Hematocrit 39.2 % (36.0-47.0) Mean Corpuscular Volume 93 fL (79-100) Mean Corpuscular Hemoglobin 29 pg (25-35) Mean Corpuscular Hemoglobin Concent 31 g/dL (31-37) Red Cell Distribution Width 13.4 % (11.5-14.5) Platelet Count 148 x10^3/uL (140-400) Neutrophils (%) (Auto) 68 % (31-73) Lymphocytes (%) (Auto) 20 % (24-48) Monocytes (%) (Auto) 11 % (0-9) Eosinophils (%) (Auto) 1 % (0-3) Basophils (%) (Auto) 0 % (0-3) Neutrophils # (Auto) 4.9 x10^3uL (1.8-7.7) Lymphocytes # (Auto) 1.5 x10^3/uL (1.0-4.8) Monocytes # (Auto) 0.8 x10^3/uL (0.0-1.1) Eosinophils # (Auto) 0.1 x10^3/uL (0.0-0.7) Basophils # (Auto) 0.0 x10^3/uL (0.0-0.2) Sodium Level 147 mmol/L (136-145) Potassium Level 4.0 mmol/L (3.5-5.1) Chloride Level 113 mmol/L (98-107) Carbon Dioxide Level 26 mmol/L (21-32) Anion Gap 8 (6-14) Blood Urea Nitrogen 34 mg/dL (7-20) Creatinine 2.1 mg/dL (0.6-1.0) Estimated GFR (Cockcroft-Gault) 23.1 Glucose Level 87 mg/dL (70-99) Calcium Level 8.2 mg/dL (8.5-10.1) Test 05/21/17 07:53 05/21/17 10:49 Glucose (Fingerstick) 99 mg/dL (70-99) 173 mg/dL (70-99) Laboratory Tests Test 05/20/17 17:02 05/20/17 21:11 05/21/17 03:55 05/21/17 07:27 Glucose (Fingerstick) 149 mg/dL (70-99) 214 mg/dL (70-99) 56 mg/dL (70-99) White Blood Count 7.2 x10^3/uL (4.0-11.0) Red Blood Count 4.22 x10^6/uL (3.50-5.40) Hemoglobin 12.1 g/dL (12.0-15.5) Hematocrit 39.2 % (36.0-47.0) Mean Corpuscular Volume 93 fL (79-100) Mean Corpuscular Hemoglobin 29 pg (25-35) Mean Corpuscular Hemoglobin Concent 31 g/dL (31-37) Red Cell Distribution Width 13.4 % (11.5-14.5) Platelet Count 148 x10^3/uL (140-400) Neutrophils (%) (Auto) 68 % (31-73) Lymphocytes (%) (Auto) 20 % (24-48) Monocytes (%) (Auto) 11 % (0-9) Eosinophils (%) (Auto) 1 % (0-3) Basophils (%) (Auto) 0 % (0-3) Neutrophils # (Auto) 4.9 x10^3uL (1.8-7.7) Lymphocytes # (Auto) 1.5 x10^3/uL (1.0-4.8) Monocytes # (Auto) 0.8 x10^3/uL (0.0-1.1) Eosinophils # (Auto) 0.1 x10^3/uL (0.0-0.7) Basophils # (Auto) 0.0 x10^3/uL (0.0-0.2) Sodium Level 147 mmol/L (136-145) Potassium Level 4.0 mmol/L (3.5-5.1) Chloride Level 113 mmol/L (98-107) Carbon Dioxide Level 26 mmol/L (21-32) Anion Gap 8 (6-14) Blood Urea Nitrogen 34 mg/dL (7-20) Creatinine 2.1 mg/dL (0.6-1.0) Estimated GFR (Cockcroft-Gault) 23.1 Glucose Level 87 mg/dL (70-99) Calcium Level 8.2 mg/dL (8.5-10.1) Test 05/21/17 07:53 05/21/17 10:49 Glucose (Fingerstick) 99 mg/dL (70-99) 173 mg/dL (70-99) Medications Active Scripts Medications Dose Route/Sig Max Daily Dose Days Date Category Levemir Flextouch (Insulin Detemir) 100 Unit/1 Ml Insuln.pen 28 Unit SQ HS 05/20/17 Reported Calcitrate + Vit D Caplet (Calcium Citrate/Vitamin D3) 1 Each Tablet 1 Each PO 05/20/17 Reported Crestor (Rosuvastatin Calcium) 5 Mg Tablet 1 Tab PO DAILY 05/20/17 Reported Losartan Potassium 50 Mg Tablet 50 Mg PO DAILY 05/20/17 Reported Metoprolol Succinate ( Xl ) (Metoprolol Succinate) 25 Mg Tab.er.24h 1 Tab PO BID 05/20/17 Reported Aspir 81 (Aspirin) 81 Mg Tablet.dr 1 Tab PO DAILY 05/20/17 Reported Impression . IMPRESSION: 1. Acute respiratory failure, present upon admission. 2. Mycoplasma pneumonia. 3. Sepsis. 4. Leukocytosis. 5. Fever. 6. Acute kidney injury. 7. Diabetes. Plan . Improving will continue the same 1. antibx per ID 2. Continue oxygen supplementation. 3. Follow clinical course. 4. DVT and GI prophylaxis. . JUSTICE MALAGON MD May 21, 2017 13:53
[2017-05-21 15:00] VITALS: BP 130/68
[2017-05-21] MEDS: ENOXAPARIN 30 MG/0.3 ML SYRINGE. SQ SCH (16:58)
[2017-05-21 19:00] VITALS: BP 116/65
[2017-05-21] MEDS: ATORVASTATIN CALCIUM 20 MG TABLET PO SCH (20:41)
[2017-05-21] MEDS: INSULIN DETEMIR 300 UNITS/3 ML INSULN.PEN. SQ SCH (20:51)
[2017-05-22 03:30] VITALS: BP 137/67
[2017-05-22 05:25] LABS: CALCIUM 7.7 mg/dL (8.5-10.1); CREATININE 1.8 mg/dL (0.6-1.0); GFR 27.6; POTASSIUM 3.9 mmol/L (3.5-5.1)
[2017-05-22 07:00] VITALS: BP 138/71
[2017-05-22] MEDS: IPRATRPIUM/ALBUTEROL 0.5/2.5MG 3 ML NEBU. NEB SCH ×2 (07:22→11:47)
[2017-05-22] MEDS: INSULIN ASPART 300 UNITS/3 ML INSULN.PEN SQ SCH ×2 (08:00→12:03)
[2017-05-22] MEDS: LACTOBACILLUS RHAMNOSUS GG 1 CAPSULE. PO SCH (08:36)
[2017-05-22] MEDS: AZITHROMYCIN 250 MG TABLET. PO SCH (08:36)
[2017-05-22] MEDS: ASPIRIN ENTERIC COATED 81 MG TABLET.DR. PO SCH (08:36)
[2017-05-22] MEDS: METOPROLOL SUCC 24HR ER 25 MG TAB.ER.24H. PO SCH (08:40)
[2017-05-22 10:58] VITALS: BP 144/77
--- NOTE | 2017-05-22 12:36 | PDOC ---
PROGRESS NOTES Subjective Subjective feels good wanting to go home Objective Objective Vital Signs Date Time Temp Pulse Resp B/P (MAP) Pulse Ox O2 Delivery O2 Flow Rate FiO2 05/22/17 11:48 Nasal Cannula 2.0 05/22/17 10:58 98.1 92 18 144/77 (99) 96 98.1 Intake and Output 05/22/17 07:00 Intake Total 2060 ml Output Total 750 ml Balance 1310 ml Intake Oral 2060 ml Output Urine Total 750 ml # Voids 2 Physical Exam Abdomen: Normal bowel sounds, Soft Heart: Regular rate, Normal S1, Normal S2 Extremities: No clubbing General: Oriented X3 HEENT: Atraumatic Lungs: Normal air movement MUSCULOSKELETAL: No swelling Neck: Supple Neuro: Normal speech Psych/Mental Status: Mental status NL Skin: No breakdown Diagnosis Problem List Problems Medical Problems: (1) Acute respiratory failure Status: Acute (2) Sepsis Status: Acute Assessment Assessment Problems Medical Problems: (1) Acute respiratory failure Status: Acute (2) Sepsis Status: Acute IMPRESSION: 1. Fever. 2. Leukocytosis. 3. community-acquired pneumonia Mycoplasma 4. Acute on chronic kidney injury. 5. Diabetes IDDM. PLAN: 6 mts walk wbc down 10 mycoplasma urine positive. cxr improving home today on Z pack Problems: Plan Plan of Care Problems Medical Problems: (1) Acute respiratory failure Status: Acute (2) Sepsis Status: Acute Comment Review of Relevant I have reviewed the following items susannah (where applicable) has been applied. Labs Laboratory Tests Test 05/21/17 16:36 05/21/17 20:31 05/22/17 04:00 05/22/17 07:44 Glucose (Fingerstick) 142 mg/dL (70-99) 203 mg/dL (70-99) 130 mg/dL (70-99) Sodium Level 142 mmol/L (136-145) Potassium Level 3.9 mmol/L (3.5-5.1) Chloride Level 108 mmol/L (98-107) Carbon Dioxide Level 26 mmol/L (21-32) Anion Gap 8 (6-14) Blood Urea Nitrogen 29 mg/dL (7-20) Creatinine 1.8 mg/dL (0.6-1.0) Estimated GFR (Cockcroft-Gault) 27.6 Glucose Level 214 mg/dL (70-99) Calcium Level 7.7 mg/dL (8.5-10.1) Test 05/22/17 11:19 Glucose (Fingerstick) 170 mg/dL (70-99) Microbiology 05/20/17 Blood Culture - Preliminary, Resulted NO GROWTH AFTER 2 DAYS 05/20/17 - Final, Resulted 05/20/17 - Final, Resulted 05/20/17 - Final, Resulted 05/20/17 - Final, Resulted 05/20/17 Gram Stain Evaluation - Final, Resulted 05/20/17 Sputum Culture - Preliminary, Resulted 05/20/17 Sputum Result 1 - Final, Resulted Medications Current Medications Vancomycin HCl 1 each 1X ONCE MC ; Start 05/22/17 at 08:30; Stop 05/22/17 at 08 :30; Status DC Vitals/I & O Vital Sign - Last 24 Hours 05/21/17 05/21/17 05/21/17 05/21/17 15:00 15:21 19:00 20:03 Temp 97.8 98.9 97.8 98.9 Pulse 74 88 Resp 18 18 B/P (MAP) 130/68 (88) 116/65 (82) Pulse Ox 97 92 O2 Delivery Nasal Cannula Nasal Cannula Nasal Cannula O2 Flow Rate 2.0 2.0 2.0 05/21/17 05/21/17 05/22/17 05/22/17 20:51 21:01 03:30 07:00 Temp 99.8 99.7 99.8 99.7 Pulse 88 97 100 Resp 18 20 B/P (MAP) 116/65 137/67 (90) 138/71 (93) Pulse Ox 93 93 O2 Delivery Nasal Cannula Room Air Nasal Cannula O2 Flow Rate 2.0 2.0 05/22/17 05/22/17 05/22/17 05/22/17 07:23 08:00 08:40 10:58 Temp 98.1 98.1 Pulse 100 92 Resp 18 B/P (MAP) 138/71 144/77 (99) Pulse Ox 97 96 O2 Delivery Nasal Cannula Nasal Cannula Nasal Cannula O2 Flow Rate 2.0 2.0 2.0 05/22/17 11:48 O2 Delivery Nasal Cannula O2 Flow Rate 2.0 Intake and Output 05/21/17 05/21/17 05/22/17 15:00 23:00 07:00 Intake Total 600 ml 1220 ml 240 ml Output Total 750 ml Balance 600 ml 470 ml 240 ml SUKUMAR RICO MD May 22, 2017 12:36
[2017-05-22] MEDS ORDERED: AZIT250T PO (12:39)
--- NOTE | 2017-05-22 13:40 | PDOC ---
Infectious Disease Note Subjective Subjective Wants to go home Feeling better over all ROS ROS GEN: Denies fevers, chills, sweats CV: Denies chest pain RESP: Denies shortness of air, cough GI: Denies n/v/d Vital Sign Vital Signs Vital Signs Date Time Temp Pulse Resp B/P (MAP) Pulse Ox O2 Delivery O2 Flow Rate FiO2 05/22/17 11:48 Nasal Cannula 2.0 05/22/17 10:58 98.1 92 18 144/77 (99) 96 98.1 Physical Exam PHYSICAL EXAM GENERAL: Sitting on the side of the bed, smiling HEENT: OC/OP pink NECK: Supple LUNGS: Clear HEART: S1S2, no gallop, no murmur ABD: Soft, NT, BS active EXT: No edema, no cyanosis REFERRAL NURSE: Alert, responds appropriately SKIN: No rash Labs Lab Laboratory Tests Test 05/21/17 16:36 05/21/17 20:31 05/22/17 04:00 05/22/17 07:44 Glucose (Fingerstick) 142 mg/dL (70-99) 203 mg/dL (70-99) 130 mg/dL (70-99) Sodium Level 142 mmol/L (136-145) Potassium Level 3.9 mmol/L (3.5-5.1) Chloride Level 108 mmol/L (98-107) Carbon Dioxide Level 26 mmol/L (21-32) Anion Gap 8 (6-14) Blood Urea Nitrogen 29 mg/dL (7-20) Creatinine 1.8 mg/dL (0.6-1.0) Estimated GFR (Cockcroft-Gault) 27.6 Glucose Level 214 mg/dL (70-99) Calcium Level 7.7 mg/dL (8.5-10.1) Test 05/22/17 11:19 Glucose (Fingerstick) 170 mg/dL (70-99) Micro SPUTUM CULT RES 1 Final Comment Routine respiratory vickey BLOOD CULTURE Preliminary NO GROWTH AFTER 2 DAYS Objective Assessment Fever - better Leukocytosis - better + Mycoplama ? Developing CAP vs bronchitis KALIN - worse DM Plan Plan of Care Cont Azithromycin Probiotics D/w family Attending Co-Sign The patient was seen and interviewed as well as examined at the bedside. The chart was reviewed. The case was discussed. Agree with the plan of care. RANDOLPH CACERES APRN May 22, 2017 13:39 DAVID STILES MD May 22, 2017 14:54
== END 2017-05-22 15:00 | disposition home or self-care (01) | DRG 871 ==
LOC: ER 07:05 → 5 SOUTH 09:00
PROVIDERS: ADMIT Internal Medicine; ATTEND Internal Medicine
DX: A41.9 Sepsis, unspecified organism (principal); J15.7 Pneumonia due to Mycoplasma pneumoniae; J96.01 Acute respiratory failure with hypoxia; N17.9 Acute kidney failure, unspecified; E11.22 Type 2 diabetes mellitus with diabetic chronic kidney disease; N18.3 Chronic kidney disease, stage 3 (moderate); J02.9 Acute pharyngitis, unspecified; I12.9 Hypertensive chronic kidney disease with stage 1 through stage 4 chronic kidney disease, or unspecified chronic kidney disease; Z88.8 Allergy status to other drugs, medicaments and biological substances; Z87.440 Personal history of urinary (tract) infections; Z98.49 Cataract extraction status, unspecified eye; Z79.4 Long term (current) use of insulin; Z23 Encounter for immunization
CPT/HCPCS: 36415; 36600; 71010; 71020; 80048; 80053; 81001; 82805; 82962; 83605; 83735; 85025; 85610; 86738; 87040; 87070; 87205; 87449; 87804; 90732; 93005; 94250; 94620; 94640; 94760; 96361; 96365; 96375; J0456; J1650; J1815; J2543; J3370; J7030; J7050; J7620; Q0144; 99285-25

== ENCOUNTER → 2017-09-08 | Outpatient (CLI) | payer OTHER | END | disposition home or self-care (01) | LOC: KCIC 15:41 | DX: M19.012 Primary osteoarthritis, left shoulder (principal) | CPT/HCPCS: 73030 ==

== ENCOUNTER 2020-07-13 10:59 | Emergency (ER) | payer MEDICARE, OTHER ==
[~2020-07-13] VITALS: Ht 154.9 cm; Wt 51.3 kg
[~2020-07-13 10:59] MED LIST: ASPI-482 PO; AZIT250T PO; CALC1TAB67 PO; CRESTOR5 MG PO; INSU100I27 SQ; LOSA-73 PO; METO-239 PO
--- NOTE | 2020-07-13 11:40 | PHYS DOC ---
Past Medical History Past Medical History: Anxiety, Diabetes-Type II, High Cholesterol, Hypert ension, Renal Failure Past Surgical History: Hysterectomy Smoking Status: Never Smoker Alcohol Use: None Drug Use: None General Adult EDM: Chief Complaint: ABNORMAL LABS HPI: HPI: Patient is a 74 year old female who presents with had her blood drawn and her potassium was high. Patient states that also 2 to 3 days ago she began having a high temperature of 103 but is since gone away. She states she is generalized weakness and some body aches. She states she has headache off and on. She does not have dialysis but she does have kidney disease. Patient states that a week ago she had some burning with urination but drink a lot of water and the symptom went away. She currently denies any pain. Patient has a history of kidney disease, hysterectomy, hypertension, diabetes, high cholesterol, pneumonia. Review of Systems: Review of Systems: Constitutional: + fever or chills. + Abnormal potassium level [] Eyes: Denies change in visual acuity. [] HENT: Denies nasal congestion or sore throat. [] Respiratory: Denies cough or shortness of breath. [] Cardiovascular: Denies chest pain or edema. [] GI: Denies abdominal pain, nausea, vomiting, bloody stools or diarrhea. [] : Denies dysuria. + 1 week ago burning with urination [] Musculoskeletal: Denies back pain or joint pain. + Generalized weakness [] Integument: Denies rash. [] Neurologic: + Intermittent headache, focal weakness or sensory changes. [] Endocrine: Denies polyuria or polydipsia. [] Lymphatic: Denies swollen glands. [] Psychiatric: Denies depression or anxiety. [] Heart Score: Risk Factors: Risk Factors: DM, Current or recent (<one month) smoker, HTN, HLP, family history of CAD, obesity. Risk Scores: Score 0 - 3: 2.5% MACE over next 6 weeks - Discharge Home Score 4 - 6: 20.3% MACE over next 6 weeks - Admit for Clinical Observation Score 7 - 10: 72.7% MACE over next 6 weeks - Early Invasive Strategies Allergies: Allergies: Allergies Coded Allergies Type Severity Reaction Last Updated Verified losartan Adverse Reaction Intermediate cough 07/13/20 Yes Physical Exam: PE: Constitutional: Well developed, well nourished, no acute distress, non-toxic ap pearance. [] HENT: Normocephalic, atraumatic, bilateral external ears normal, oropharynx moist, no oral exudates, nose normal. [] Eyes: PERRLA, EOMI, conjunctiva normal, no discharge. [] Neck: Normal range of motion, no tenderness, supple, no stridor. [] Cardiovascular:Heart rate regular rhythm, no murmur [] Lungs & Thorax: Bilateral upper breath sounds clear and lower diminished to auscultation [] Abdomen: Bowel sounds normal, soft, no tenderness, no masses, no pulsatile masses. [] Skin: Warm, dry, no erythema, no rash. [] Back: No tenderness, no CVA tenderness. [] Extremities: No tenderness, no cyanosis, no clubbing, ROM intact, no edema. [] Neurologic: Alert and oriented X 3, normal motor function, normal sensory function, no focal deficits noted. [] Psychologic: Affect normal, judgement normal, mood normal. [] Current Patient Data: Vital Signs: Vital Signs Date Time Temp Pulse Resp B/P (MAP) Pulse Ox O2 Delivery O2 Flow Rate FiO2 07/13/20 11:18 98.1 64 24 144/77 (99) 96 Room Air 98.1 EKG: EK and read by Dr. Su as sinus rhythm and no STEMI Radiology/Procedures: Radiology/Procedures: [] Impression: [facility] [address] [place] [address] IMAGING REPORT Signed PATIENT: ANDRIA DICKEY V ACCOUNT: [id number] : 1945 LOCATION: ER AGE: 74 SEX: F EXAM STATUS: REG ER ORD. PHYSICIAN: JAMIE BUCIO APRN REASON: fever, bodyaches PROCEDURE: PORTABLE CHEST 1V EXAM: Chest, single view. HISTORY: Fever. COMPARISON: 05/21/2017 FINDINGS: A frontal view of the chest is obtained. There is slight blunting of the costophrenic angles likely due to basilar pleural parenchymal scarring. No convincing pleural effusion or pneumothorax is seen. There are chronic appearing interstitial changes. There is cardiomegaly. IMPRESSION: Chronic appearing interstitial changes and stable cardiomegaly Electronically signed by: Amy Collado MD (07/13/2020 12:05 PM) [facility] DICTATED and SIGNED BY: AMY COLLADO MD DATE: 07/13/20 [id number] Course & Med Decision Making: Course & Med Decision Making Pertinent Labs and Imaging studies reviewed. (See chart for details) COVID-19 CRITERIA: The patient was evaluated during the global COVID-19 pandemic, and that diagnosis was suspected/considered upon their initial presentation. Their evaluation, treatment and testing was consistent with current guidelines for patients who present with complaints or symptoms that may be related to COVID-19. See HPI. Alert and oriented x4. Daughter is in the room interpreting for the patient. Speaks in full clear sentences. Answers all questions appropriately. Skin pink warm and dry. Afebrile. No extremity edema. Lungs are clear lobes and diminished in lower lobes. Patient's potassium is 4.3. I called and spoke to Dr. Flores and he states she is okay to go home. Patient will follow up with Dr. Flores and nephrology if needed. [] Fred Disclaimer: [place] Disclaimer: This electronic medical record was generated, in whole or in part, using a voice recognition dictation system. COVID-19 Patient Risks: Age 65 or older: Yes Sign of co-morbidity: Yes Exp to person + for COVID: Yes Exp to PUI: No Travel from affected area: No Lower respiratory symptoms: No Fever: Yes Other: Yes (bodyaches, generalised fatigue) PPE Use: Full PPE with N95 mask or PAPR: Yes Departure Departure Impression: Primary Impression: Encounter for medical screening examination Additional Impressions: Person under investigation for COVID-19 Generalized weakness Disposition: 01 DC HOME SELF CARE/HOMELESS Condition: STABLE Referrals: PAVITHRA MARKS (PCP) Patient Instructions: Medical Screening Exam Additional Instructions: Follow-up with primary care or your welding foreman. Drink plenty of fluids. Quarantine. You have been tested for or diagnosed with COVID-19. It is an infection caused by a new type of coronavirus. COVID-19 will cause cold-like or mild flu symptoms in most. It can cause more severe symptoms like problems breathing in some. There is no treatment for COVID-19. The body will clear the infection over time. Self-care will help to ease discomfort. Steps to Take: Self-Care Rest as needed. Healthy habits may help you feel better. Steps include: Choose healthy foods including fruits and vegetables. Drink water throughout the day. Get plenty of sleep each night. If you smoke, try to quit. It may ease breathing. Avoid alcohol. Keep Others Healthy The virus can spread to others. Droplets are released every time you sneeze or cough. The droplets can get into the mouth, nose, or eyes of people near you and lead to in fection. To lower the chances of spreading COVID-19 to others: Stay at home until your doctor has said it is safe to leave. If you tested positive this will mean staying isolated until both of the following are true: At least 7 days have passed since the start of illness. You are free of fever for at least 72 hours without the use of medicine. During this time: - Avoid public areas, events, or transportation. Do not return to work or school until your doctor has said it is safe to do so. - Call ahead if you need to go to a medical center. Let them know you may have COVID-19. It will help them guide you where to go. They may also ask you to wear a facemask when you come to the office. - If you call for emergency medical services, let them know you may have COVID- 19. While at home: - Try to avoid close contact with others. Stay about 6 feet away. - If possible, spend most of your time in a separate room from others. - Use a face mask if you will be in close contact with others such as sharing a room or vehicle. - Have someone wipe down common surfaces in the home. Use household guitar technician every day on areas like doorknobs, counters, or sinks. - Cough or sneeze into a tissue. Throw the tissue away right after use. If a tissue is not available, cough or sneeze into your elbow. - Wash your hands often. Wash them after sneezing or coughing. Use soap and water and wash for at least 20 seconds. Alcohol based hand lamp cleaner can be used if soap and water is not available. - Do not prepare food for others. Avoid sharing personal items like forks, spoons, or toothbrushes. - Avoid close contact with pets while you are sick. There is no evidence of the virus passing to pets. This is a safety step until more is known about this virus. Isolation can be frustrating. Social interaction can help. Keep in touch with friends and family through phone and tech options. You can still interact with others in your home, just keep a safe distance of about 6 feet. Follow-up: Your doctors office will check in with you to see if there are any changes in your health. You may be asked to keep track of symptoms to share with them. They will also let you know when you are clear to be in public again. Problems to Look Out For: Contact your doctor if your recovery is not going as you expect. Get emergency care if you have problems such as: - Trouble breathing - Nonstop chest pain or pressure - Changes in awareness, confusion, or problems waking - Lips or face have bluish color - Worsening of symptoms If you think you have an emergency, call for emergency medical services right away. As taken from [facility] JAMIE BUICO APRN Jul 13, 2020 11:40
--- NOTE | 2020-07-13 12:08 | RAD ---
EXAM: Chest, single view. HISTORY: Fever. COMPARISON: 05/21/2017 FINDINGS: A frontal view of the chest is obtained. There is slight blunting of the costophrenic angle s likely due to basilar pleural parenchymal scarring. No convincing pleural effusion or pneumothorax is seen. There are chronic appearing interstitial changes. There is cardiomegaly. IMPRESSION: Chronic appearing interstitial changes and stable cardiomegaly Electronically signed by: Amy Harrison MD (07/13/2020 12:05 PM) [facility]
[2020-07-13 12:18] LABS: BASO % 1 % (0-3); EOS # 0.1 x10^3/uL (0.0-0.7); EOS % 1 % (0-3); HEMATOCRIT 36.7 % (36.0-47.0); HEMOGLOBIN 12.2 g/dL (12.0-15.5); LYMPH # 0.8 x10^3/uL (1.0-4.8); LYMPH % 9 % (24-48); MEAN CORPUSCULAR HEMOGLOBIN 28 pg (25-35); MEAN CORPUSCULAR HGB CONC 33 g/dL (31-37); MEAN CORPUSCULAR VOLUME 84 fL (79-100); MONO # 0.9 x10^3/uL (0.0-1.1); MONO % 11 % (0-9); NEUT # 6.5 x10^3/uL (1.8-7.7); NEUT % 79 % (31-73); PLATELET COUNT 274 x10^3/uL (140-400); RED BLOOD COUNT 4.35 x10^6/uL (3.50-5.40); RED CELL DISTRIBUTION WIDTH 13.5 % (11.5-14.5); WHITE BLOOD COUNT 8.3 x10^3/uL (4.0-11.0)
[2020-07-13 12:20] LABS: CALCIUM 8.6 mg/dL (8.5-10.1); GFR 24.2; POTASSIUM 4.3 mmol/L (3.5-5.1)
[2020-07-13 12:26] LABS: ALBUMIN 2.6 g/dL (3.4-5.0); ALBUMIN/GLOBULIN RATIO 0.8 (1.0-1.7); TOTAL BILIRUBIN 0.6 mg/dL (0.2-1.0); TOTAL PROTEIN 5.7 g/dL (6.4-8.2)
[2020-07-13 12:33] LABS: INFLUENZA A PATIENT NEGATIVE (NEGATIVE); INFLUENZA B PATIENT NEGATIVE (NEGATIVE)
[2020-07-13 13:23] LABS: BILIRUBIN,URINE NEGATIVE (NEG); CLARITY,URINE CLEAR; COLOR,URINE YELLOW; NITRITE,URINE NEGATIVE (NEG); PH,URINE 6.5 (<5.0-8.0); PROTEIN,URINE 100 mg/dL (NEG-TRACE); UROBILINOGEN,URINE 0.2 mg/dL (0.2 mg/dL)
[2020-07-13 13:43] LABS: BACTERIA,URINE 0 /HPF (0-FEW); RBC,URINE OCC /HPF (0-2); WBC,URINE OCC /HPF (0-4)
[2020-07-13 15:07] VITALS: BP 160/74
--- NOTE | 2020-07-14 04:08 | EKG ---
[facility] [address] [place] [address] Test Date: 2020-07-13 Test Time: 11:18:13 Pat Name: ANDRIA DICKEY Department: Room: Gender: F Analytical Clerk: : 1945 Requested By: JAMIE BUCIO Order Number: [id number] Reading MD: Measurements Intervals [place] Rate: 62 P: 59 RI: 160 QRS: 24 QRSD: 78 T: 32 QT: 380 QTc: 388 Interpretive Statements SINUS RHYTHM LEFT ATRIAL ABNORMALITY ABNORMAL ECG RI6.02 No previous ECG available for comparison
--- NOTE | 2020-07-14 16:03 | NUR ---
IP: Attempted to contact pt or family concerning positive COVID test. No one available that spoke Malaysian. Unable to get phone lockstitch collar setter to connect as a three-way. Notified [facility] department of inability to notify pt.
== END 2020-07-13 16:21 | disposition home or self-care (01) ==
LOC: ER 10:59
DX: U07.1 COVID-19 (principal); R53.1 Weakness; R30.0 Dysuria; R51.9 Headache, unspecified; E78.00 Pure hypercholesterolemia, unspecified; E11.22 Type 2 diabetes mellitus with diabetic chronic kidney disease; I12.9 Hypertensive chronic kidney disease with stage 1 through stage 4 chronic kidney disease, or unspecified chronic kidney disease; N18.9 Chronic kidney disease, unspecified; Z90.710 Acquired absence of both cervix and uterus
CPT/HCPCS: 36415; 71045; 80053; 81001; 83735; 83880; 84484; 85025; 87804; 93005; 99285; C9803; U0003

== ENCOUNTER → 2021-10-27 | Outpatient (CLI) | payer MEDICARE ==
[2021-10-24 07:00] VITALS: BP 152/88
[~2021-10-27] MED LIST changes: +ATOR10TA60 PO; +INSU100C4 SQ; +INSU100V13 SQ; +LOSA50TA15 PO; +PRAV20TA2 PO; +REGADENOSON 0.4 MG/5 ML DISP.SYRIN. IV ONE
--- NOTE | 2021-10-28 07:46 | RAD ---
MR#: [id number] Date of Study: 10/27/2021 Ordering Physician: WALESKA CASE, Referring Physician: CALE CASTANO Tech: RT Marianne Brennan) (N) APPROVED REPORT Test Type: Pharmacological Stress Nurse/Tech: Claribel Bermudez R.N. Test Indications: c/p Cardiac History: htn,CKD,DM Medications: See Electronic Medical Record Medical History: See Electronic Medical Record Resting ECG: SR with very slight ST elevation in leads II,III,AVF,V1,V3-V6- Resting Heart Rate: 73 bpm Resting Blood Pressure: 152/61mmHg Pretest Chest Pain: No chest pain Nurse/Tech Notes S1S2, lungs CTA Consent: The procedure was explained to the patient in lay terms. Informed consent was witnessed. Yoandy eout was entered into [facility]. History and Stress Test performed by RT Marianne Brennan) (N) Pharm. Details Pharmacologic stress testing was performed using 0.4mg per 5ml of regadenoson given intravenously ove r 7-10 seconds. Stress Symptoms SOA, stomach cramps POST EXERCISE Reason for Termination: Infusion complete Max HR: 94 bpm Max Blood Pressure: 130/58mmHg Blood Pressure response to exercise: Normal blood pressure response during stress. Heart Rate response to exercise: wnl Chest Pain: No. Arrhythmia: No. ST Change: No. no changes from abnormal baseline INTERPRETATION Stress EKG Conclusion: Baseline EKG showed sinus rhythm. No ischemic changes at peak stress. No arr hythmias. Imaging Protocol IMAGE PROTOCOL: Rest Tc-99m/stress Tc-99m 1 day Rest: Stress: Viability: Radiopharm.Tc99m [id number] Sestamibi Dose10.2mCi 32.5mCi Duration 13min. 13min. Img Date 10/27/2021 10/27/2021 Inj-Img Jrwe29rpm. 60min. Rest Admin Site:IV - Right AntecubitalAdministrator:RT Marianne Brennan)(N) Stress Admin Site: IV - Right AntecubitalAdministrator: RT Marianne Brennan)(N) STRESS DATA End Diast. Vol.68.0mlLVEDV index BSA44.0ml End Syst. Vol.14.0mlLVESV index BSA9.0ml Myocardial Mass99.0gEject. Duxbwzsi14.0% Stress Scores Regional WT0.00Summed WT1.00 Regional WM0.00Summed WM1.00 Study quality was good. Left Ventricular size was Normal at Rest and Stress. Lung uptake was . Left Ventricular ejection fraction is 79%. The rest and stress images show normal perfusion, normal contraction and thickening. LV Perf. Quant 17 Seg. SSS0.00 17 Seg. SRS0.00 17 Seg. SDS0.00 Stress Defect Extent (% LAD)0.00Rest Defect Extent (% LAD)0.00Rev. Defect Extent (% LAD)0.00 Stress Defect Extent (% LCX) 0.00Rest Defect Extent (% LCX)0.00Rev. Defect Extent (% LCX)0.00 Stress Defect Extent (% RCA)0.00Rest Defect Extent (% RCA)0.00Rev. Defect Extent (% RCA)0.00 Stress Defect Extent (% SONDRA)0.00Rest Defect Extent (% SONDRA)0.00Rev. Defect Extent (% SONDRA)0.00 Conclusion 1. Regadenoson cardioisotope stress test did not show any evidence of ischemia or infarct. 2. Normal left ventricular systolic function with ejection fraction calculated at 79%. 3. Low risk for cardiac events. Signed by : Camacho Van, Electronically Approved : 10/27/2021 14:14:39
== END ==
LOC: NM 08:40
PROVIDERS: ATTEND Internal Medicine Cardiovascular Disease
DX: R07.9 Chest pain, unspecified (principal); R06.00 Dyspnea, unspecified
CPT/HCPCS: 78452; 93017; A9500; J2785